=== PATIENT | female | born 1990 | race Caucasian/White ===

== ENCOUNTER 2023-05-03 22:42 | Emergency (ER) | payer OTHER ==
[2023-05-03] MEDS ORDERED: Ativan 1 MG PO ONE (23:11)
[2023-05-03 23:28] VITALS: TEMP 98.6
[2023-05-03] MEDS ORDERED: Ativan 1 MG ONE (23:28)
[2023-05-03 23:30] LABS: Appearance Clear (Clear); Bacteria None Seen /HPF (None Seen); Bilirubin Negative (Negative); Blood Moderate (Negative); Epithelial Cells None Seen /HPF (None Seen); Glucose, Urine Negative (Negative); Hyaline Casts NONE SEEN /LPF (0-2); Ketones Negative (Negative); Leukocyte Esterase Trace (Negative); Nitrite Negative (Negative); Protein,Urine Dip Negative (Negative); RBC 21-50 /HPF (0-5); Urobilinogen 0.2 mg/dL (0.2)
[2023-05-03 23:32] LABS: Absolute Neutrophil Ct (ANC) 6.99 x10^3/uL (1.4-6.9); BASOPHIL % 0.4 % (0.0-0.4); Basophil (Absolute #) 0.05 x10^3/uL (0-0.4); Eosinophil % 2.3 % (0.00-5.0); Eosinophil (Absolute #) 0.27 x10^3/uL (0-0.5); Hematocrit 39.9 % (35-47); Hemoglobin 12.9 g/dL (12.0-16.0); IMMATURE GRAN # 0.04 x10^3u/L (0.00-0.03); IMMATURE GRAN % 0.3 % (0.00-0.4); Lymphocytes % 31.6 % (24.0-44.0); Mean Cell Volume 92.1 fL (78-100); Mean Corpuscular Hemoglobin 29.8 pg (26-32); Mean Corpuscular Hgb Concent. 32.3 g/dL (32-36); Mean Platelet Volume 9.2 fL (7.5-11.0); Monocyte (Absolute #) 0.67 x10^3/uL (0.0-1.3); Monocytes % 5.7 % (0.0-12.0); Neutrophil % 59.7 % (36.0-66.0); Platelet Count 435 x10^3/uL (150-450); Red Blood Count 4.33 x10^6/uL (4.1-5.4); Red Cell Distribution Width 13.3 % (11.5-14.0); White Blood Count 11.7 x10^3/uL (4.0-10.5)
[2023-05-03 23:34] LABS: ADD URINE CULTURE? YES (NO)
[2023-05-03 23:41] LABS: Barbiturate,Urine NEGATIVE (NEGATIVE); Benzodiazepine,Urine NEGATIVE (NEGATIVE); Cocaine,Urine NEGATIVE (NEGATIVE); Methadone,Urine NEGATIVE (NEGATIVE); Opiate,Urine NEGATIVE (NEGATIVE); PCP,Urine NEGATIVE (NEGATIVE); THC,Urine NEGATIVE (NEGATIVE)
[2023-05-03 23:45] LABS: ALBUMIN 4.3 g/dL (3.5-5.0); ANION GAP 12.4 MEQ/L (5-15); BILIRUBIN,TOTAL 0.5 mg/dL (0.2-1.3); Calcium 9.1 mg/dL (8.4-10.2); Creatinine 1 0.64 mg/dL (0.52-1.04); EST GLOMERULAR FILTRATION RATE 121.1 ML/MIN; Potassium 3.6 mmol/L (3.5-5.1); Total Protein 7.5 g/dL (6.3-8.2)
[2023-05-03 23:54] LABS: Amphetamine,Urine POSITIVE (NEGATIVE)
--- NOTE | 2023-05-04 00:23 | ERPHSYRPT ---
- History of Present Illness Time Seen by Provider: 05/03/23 22:57 Source: patient Exam Limitations: no limitations Patient Subjective Stated Complaint: pt states she has multiple symptoms including discoloration to rt arm and red spots on her skin. pt is concerned she may have diabetes after having gestational diabetes. pt c/o itching on lt palm. denies pain at this time Triage Nursing Assessment: pt alert and oriented, answers questions approp. ambulates to room iwth steady gait noted. pt restless in bed. states she is feeling anxious. skin warm and dry. cap refill wnl. no swelling noted to hands. no swelling noted to lower ext. pupils equal and reactive. pt moves all extremities without diff. Physician History: 33-year-old female almost 1 month ago presented in the ER with chief complaint of multiple nonspecific symptoms. Patient reports having off-and-on discoloration on the arms more on the right than the left with some stiffness in the hands at times. She has history of carpal tunnel surgery and thinks she has tendinitis as she feels tingly sensation with hyperextension at the wrist. She is also worried about having some bluish spots which were on the arms earlier and now have few on the anterior chest wall. Having itching on the palms which is better at this point. Denies any chest pain palpitations or shortness of breath. No abdominal pain nausea or vomiting. Patient is very anxious and worried about being diabetic as she had gestational diabetes and missed her appointment and wants to be checked for that. Does report using marijuana and methamphetamine along with tobacco use. Denies any alcohol use. Allergies/Adverse Reactions: pineapple Allergy (Intermediate, Verified 05/03/23 23:27) Rash Home Medications: No Reportable Medications [No Reported Medications] 05/03/23 [History] Hx Tetanus, Diphtheria Vaccination/Date Given: Yes Hx Influenza Vaccination/Date Given: Yes Hx Pneumococcal Vaccination/Date Given: No Immunizations Up to Date: Yes Travel Risk - International Travel Have you traveled outside of the country in past 3 weeks: No - Coronavirus Screening Are you exhibiting any of the following symptoms?: No Close contact with a COVID-19 positive Pt in past 14-21 Days: No - Vaccine Status Have you recieved a Covid-19 vaccination: No - Review of Systems Constitutional: No Symptoms Eyes: No Symptoms Ears, Nose, & Throat: No Symptoms Respiratory: No Symptoms Cardiac: No Symptoms Abdominal/Gastrointestinal: No Symptoms Genitourinary Symptoms: No Symptoms Musculoskeletal: Myalgias Skin: No Symptoms Neurological: No Symptoms Psychological: Anxiety, Depression, No Suicidal Ideations, No Homicidal Ideations Endocrine: No Symptoms Hematologic/Lymphatic: No Symptoms Immunological/Allergic: No Symptoms - Past Medical History Pertinent Past Medical History: Yes Psycho-Social History: Anxiety Other Medical History: gestational diabetes - Past Surgical History Past Surgical History: Yes Musculoskeletal: Orthopedic Surgery Female Surgical History: Section Other Surgical History: carpal tunnel - Social History Smoking Status: Current every day smoker How long have you smoked: 12yrs Exposure to second hand smoke: No Drug Use: marijuana, methamphetamines Patient Lives Alone: No - Female History Hx Last Menstrual Period: post 2mos Hx Now: No - Nursing Vital Signs Nursing Vital Signs: Initial Vital Signs Temperature 98.6 F 05/03/23 23:03 Pulse Rate 109 H 05/03/23 23:03 Respiratory Rate 18 05/03/23 23:03 Blood Pressure 164/99 05/03/23 23:03 O2 Sat by Pulse Oximetry 98 05/03/23 23:03 Pain Scale Pain Intensity 0 - Physical Exam General Appearance: no apparent distress, alert Eye Exam: PERRL/EOMI Ears, Nose, Throat Exam: normal ENT inspection, pharynx normal Neck Exam: normal inspection, non-tender, supple, full range of motion Respiratory Exam: normal breath sounds, lungs clear Cardiovascular Exam: regular rate/rhythm, normal heart sounds Gastrointestinal/Abdomen Exam: soft, normal bowel sounds, No tenderness Back Exam: normal inspection, normal range of motion Extremity Exam: other (Congenital deformity right hand. No tenderness in both hands. Cap refill less than 2 seconds. No bony tenderness. 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, No normal mood/affect (Anxious) Skin Exam: normal color SpO2 Interpretation: normal SpO2: 98 O2 Delivery: Room Air Ordered Tests: Active Orders 24 hr Category Date Time Status CBC W DIFF Stat Lab 05/03/23 23:29 Completed CMP Stat Lab 05/03/23 23:29 Completed CULTURE,URINE Stat Lab 05/03/23 23:10 Received UA W/RFX UR CULTURE Stat Lab 05/03/23 23:10 Completed Urine Triage Profile Stat Lab 05/03/23 23:10 Completed Medication Summary Discontinued Medications Generic Name Dose Route Start Last Admin Trade Name Jorge L PRN Reason Stop Dose Admin Lorazepam 1 mg 05/03/23 23:11 05/03/23 23:30 Lorazepam 1 Mg Tablet PO 05/03/23 23:12 1 mg STAT ONE Administration Lorazepam Confirm 05/03/23 23:28 Lorazepam 1 Mg Tablet Administered 05/03/23 23:29 Dose 1 mg .ROUTE .STK-MED ONE Lab/Rad Data: Laboratory Result Diagrams 05/03/23 23:29 05/03/23 23:29 Laboratory Results 05/03/23 05/03/23 05/03/23 Range/Units 23:29 23:29 23:29 WBC 11.7 H (4.0-10.5) x10^3/uL RBC 4.33 (4.1-5.4) x10^6/uL Hgb 12.9 (12.0-16.0) g/dL Hct 39.9 (35-47) % MCV 92.1 (78-100) fL MCH 29.8 (26-32) pg MCHC 32.3 (32-36) g/dL RDW 13.3 (11.5-14.0) % Plt Count 435 (150-450) x10^3/uL MPV 9.2 (7.5-11.0) fL Gran % 59.7 (36.0-66.0) % Immature Gran % (Auto) 0.3 (0.00-0.4) % Nucleat RBC Rel Count 0.0 (0.00-0.1) % Eos # (Auto) 0.27 (0-0.5) x10^3/uL Immature Gran # (Auto) 0.04 H (0.00-0.03) x10^3u/L Absolute Lymphs (auto) 3.70 (1.0-4.6) x10^3/uL Absolute Monos (auto) 0.67 (0.0-1.3) x10^3/uL Absolute Nucleated RBC 0.00 (0.00-0.01) x10^3u/L Lymphocytes % 31.6 (24.0-44.0) % Monocytes % 5.7 (0.0-12.0) % Eosinophils % 2.3 (0.00-5.0) % Basophils % 0.4 (0.0-0.4) % Absolute Granulocytes 6.99 H (1.4-6.9) x10^3/uL Basophils # 0.05 (0-0.4) x10^3/uL Sodium 138 (137-145) mmol/L Potassium 3.6 (3.5-5.1) mmol/L Chloride 108 H (98-107) mmol/L Carbon Dioxide 21 L (22-30) mmol/L Anion Gap 12.4 (5-15) MEQ/L BUN 7 (7-17) mg/dL Creatinine 0.64 (0.52-1.04) mg/dL Estimated GFR 121.1 ML/MIN Glucose 110 H (74-106) mg/dL Hemoglobin A1c 5.44 (4.5-6.0) % Calcium 9.1 (8.4-10.2) mg/dL Total Bilirubin 0.50 (0.2-1.3) mg/dL AST 26 (14-36) U/L ALT 31 (0-35) U/L Alkaline Phosphatase 65 (38-126) U/L Serum Total Protein 7.5 (6.3-8.2) g/dL Albumin 4.3 (3.5-5.0) g/dL Urine Color (Yellow) Urine Appearance (Clear) Urine pH (4.6-8.0) Ur Specific [place] (1.005-1.030) Urine Protein (Negative) Urine Glucose (UA) (Negative) mg/dL Urine Ketones (Negative) Urine Blood (Negative) Urine Nitrite (Negative) Urine Bilirubin (Negative) Urine Urobilinogen (0.2) mg/dL Ur Leukocyte Esterase (Negative) U Hyaline Cast (Auto) (0-2) /LPF Urine Microscopic RBC (0-5) /HPF Urine Microscopic WBC (0-5) /HPF Ur Epithelial Cells (None Seen) /HPF Urine Bacteria (None Seen) /HPF Urine Culture Reflexed (NO) Urine Opiates Level (NEGATIVE) Ur Methadone (NEGATIVE) Urine Barbiturates (NEGATIVE) Ur Phencyclidine (PCP) (NEGATIVE) Urine Amphetamine (NEGATIVE) U Benzodiazepine Level (NEGATIVE) Urine Cocaine (NEGATIVE) Urine Marijuana (THC) (NEGATIVE) 05/03/23 05/03/23 Range/Units 23:10 23:10 WBC (4.0-10.5) x10^3/uL RBC (4.1-5.4) x10^6/uL Hgb (12.0-16.0) g/dL Hct (35-47) % MCV (78-100) fL MCH (26-32) pg MCHC (32-36) g/dL RDW (11.5-14.0) % Plt Count (150-450) x10^3/uL MPV (7.5-11.0) fL Gran % (36.0-66.0) % Immature Gran % (Auto) (0.00-0.4) % Nucleat RBC Rel Count (0.00-0.1) % Eos # (Auto) (0-0.5) x10^3/uL Immature Gran # (Auto) (0.00-0.03) x10^3u/L Absolute Lymphs (auto) (1.0-4.6) x10^3/uL Absolute Monos (auto) (0.0-1.3) x10^3/uL Absolute Nucleated RBC (0.00-0.01) x10^3u/L Lymphocytes % (24.0-44.0) % Monocytes % (0.0-12.0) % Eosinophils % (0.00-5.0) % Basophils % (0.0-0.4) % Absolute Granulocytes (1.4-6.9) x10^3/uL Basophils # (0-0.4) x10^3/uL Sodium (137-145) mmol/L Potassium (3.5-5.1) mmol/L Chloride (98-107) mmol/L Carbon Dioxide (22-30) mmol/L Anion Gap (5-15) MEQ/L BUN (7-17) mg/dL Creatinine (0.52-1.04) mg/dL Estimated GFR ML/MIN Glucose (74-106) mg/dL Hemoglobin A1c (4.5-6.0) % Calcium (8.4-10.2) mg/dL Total Bilirubin (0.2-1.3) mg/dL AST (14-36) U/L ALT (0-35) U/L Alkaline Phosphatase (38-126) U/L Serum Total Protein (6.3-8.2) g/dL Albumin (3.5-5.0) g/dL Urine Color Yellow (Yellow) Urine Appearance Clear (Clear) Urine pH 8.0 (4.6-8.0) Ur Specific [place] 1.010 (1.005-1.030) Urine Protein Negative (Negative) Urine Glucose (UA) Negative (Negative) mg/dL Urine Ketones Negative (Negative) Urine Blood Moderate A (Negative) Urine Nitrite Negative (Negative) Urine Bilirubin Negative (Negative) Urine Urobilinogen 0.2 (0.2) mg/dL Ur Leukocyte Esterase Trace A (Negative) U Hyaline Cast (Auto) NONE SEEN (0-2) /LPF Urine Microscopic RBC 21-50 A (0-5) /HPF Urine Microscopic WBC 3-5 (0-5) /HPF Ur Epithelial Cells None Seen (None Seen) /HPF Urine Bacteria None Seen (None Seen) /HPF Urine Culture Reflexed YES (NO) Urine Opiates Level NEGATIVE (NEGATIVE) Ur Methadone NEGATIVE (NEGATIVE) Urine Barbiturates NEGATIVE (NEGATIVE) Ur Phencyclidine (PCP) NEGATIVE (NEGATIVE) Urine Amphetamine POSITIVE A (NEGATIVE) U Benzodiazepine Level NEGATIVE (NEGATIVE) Urine Cocaine NEGATIVE (NEGATIVE) Urine Marijuana (THC) NEGATIVE (NEGATIVE) - Progress Progress: improved Progress Note: 05/04/23 00:26 33-year-old lady is evaluated in the ER for multiple nonspecific symptoms. Patient was very anxious complaining of itching in the arm/palms, discoloration off-and-on and being worried about having diabetes mellitus as she had gestational diabetes mellitus and is almost 1 month. She denies any ideas of hopelessness/helplessness. No depressive symptoms. She does admit to using methamphetamine and marijuana. She is not in any distress. I did not appreciate any discoloration in the arms. Intact range of motion of extremities. Baseline workup showed mildly elevated white count, fairly unremarkable chemistries and normal A1c. No UTI. She urine drug screen is positive for methamphetamine. Patient is given Ativan, on reevaluation she is much calm down and feeling better. I have shared the results of workup with patient and recommended outpatient follow-up and counseled on substance use. I think part of her symptoms are secondary to anxiety and recommended outpatient follow-up with primary care. Discussed signs symptoms of worsening needing return to ER which she seems understanding. Stable for discharge. Counseled pt/family regarding: lab results, diagnosis, need for follow-up Medical Desision Making - Independent Historian Additional History obtained from: Spouse - Diagnostic Testing Diagnostic test were ordered, analyzed, and reviewed by me: Yes - Departure Departure Disposition: Home Clinical Impression: Anxiety, Substance abuse Condition: Stable Critical Care Time: No Referrals: DOCTOR,NO FAMILY [Primary Care Provider] - Follow up with PCP 2 days Instructions: Anxiety, Adult (DC) Additional Instructions: Follow-up with primary care physician for reevaluation. Do not smoke mar ijuana/methamphetamine or any others illegal substance use. Return to ER for any worsening of symptoms.
[2023-05-04 00:28] VITALS: RESP 16
[2023-05-04 00:31] VITALS: BP 147/99; PULSE 101
[2023-05-04 00:36] VITALS: O2SAT 98
== END 2023-05-04 00:39 | disposition home or self-care (01) ==
LOC: ED 22:42
DX: F41.9 Anxiety disorder, unspecified (principal); F15.10 Other stimulant abuse, uncomplicated; Z28.310 Unvaccinated for COVID-19; Z72.0 Tobacco use
CPT/HCPCS: 36415; 80053; 80307; 81001; 83036; 85025; 87086; 99283; A9270-GY